=== PATIENT | male | born 1980 | race Caucasian/White ===

== ENCOUNTER 2019-09-30 07:54 | Emergency (ER) | payer SELFPAY ==
[2019-09-30] MEDS ORDERED: Ondansetron PF 4 MG/2 ML Vial ONE (08:20)
[2019-09-30] MEDS ORDERED: Ketorolac Tromethamine 30 MG/ML VIAL ONE (08:20)
[2019-09-30 08:39] LABS: #Basophils 0.1 thou/uL (0.0-0.2); #Eosinphils 0.2 thou/uL (0.0-0.7); #Lymphocytes 2.2 thou/uL (1.20-3.40); #Monocytes 0.5 thou/uL (0.11-0.59); #Neutrophils 7.1 thou/uL (1.40-6.50); %Basophils 0.8 % (0.0-1.0); %Eosinophils 1.8 % (0.0-10.0); %Lymphocytes 21.9 % (21.0-51.0); %Neutrophils 70.6 % (42.0-75.0); Hemoglobin 14.8 g/dL (14.0-18.0); Mean Corpuscular HGB CONC 33.2 g/dL (32.0-36.0); Mean Corpuscular Hemoglobin 31.3 pg (27.0-31.0); Mean Corpuscular Volume 94.2 fL (78.0-98.0); Mean Platelet Volume 7.2 fL (7.4-10.4); Platelet Count 294 thou/uL (130-400); RBC Distribution Width 11.6 % (11.5-14.5); Red Blood Cell (RBC) Count 4.74 mill/uL (4.70-6.10)
[2019-09-30 09:03] LABS: ALT (SGPT) 22 U/L (8-55); AST (SGOT) 16 U/L (5-34); Albumin 4.4 g/dL (3.5-5.0); Alkaline Phosphatase 66 U/L (40-110); Anion Gap 14 mmol/L (10-20); BUN (Urea Nitrogen) 16 mg/dL (8.9-20.6); Bilirubin, Total 0.6 mg/dL (0.2-1.2); Calc. Creatinine Clearance 0 mL/min (70-130); Calcium 9.4 mg/dL (7.8-10.44); Carbon Dioxide 22 mmol/L (22-29); Chloride 102 mmol/L (98-107); Estimated GFR-MDRD Greater than 90; Globulin 3.3 g/dL (2.4-3.5); Glucose 132 mg/dL (70-105); Protein, Total 7.7 g/dL (6.0-8.3); Sodium 134 mmol/L (136-145)
[2019-09-30 09:19] LABS: Bilirubin Negative (Negative); Clarity Extra Turbid (Clear); Glucose, Urine (Dipstick) Normal (Negative); Leukocyte Negative Leu/uL (Negative); Nitrite Negative (Negative); Protein, Urine (Dipstick) 10 mg/dL (Neg-Trace); Urobilinogen Normal mg/dL (Less than 2)
--- NOTE | 2019-09-30 09:26 | CT ---
CT ABDOMEN AND PELVIS WITH IV CONTRAST: HISTORY: Abdominal pain. FINDINGS: The lung bases are unremarkable. The patient is post cholecystectomy. The liver, spleen, pancreas, adrenal glands, and left kidney are normal. There is a 1 cm low-density lesion in the superior pole of the right kidney which does not meet all CT criteria for a simple cyst. No free air, free fluid, or lymphadenopathy is seen in the abdomen or pelvis. The small bowel loops are not abnormally dilated. A normal-appearing appendix is present. There is no evidence of aneurys mal dilatation of the abdominal aorta. No acute osseous abnormalities are seen. There are fat-conta ining bilateral inguinal hernias. IMPRESSION: 1. Indeterminate 1 cm right renal lesion. This should be evaluated with ultrasound on a nonemergent basis. 2. Fat-containing bilateral inguinal hernias. 3. No acute process. POS: [facility]
[2019-09-30 09:35] LABS: Bacteria/HPF Rare-Few HPF (None Seen); Blood, Urine Trace (Negative); RBC/HPF 0-3 HPF (0-3); Sperm/HPF Rare HPF (None Seen); WBC/HPF 0-3 HPF (0-3)
[2019-09-30] MEDS ORDERED: Iopamidol 370 76% 100 ML VIAL ONE (10:09)
--- NOTE | 2019-09-30 10:31 | ULT ---
Exam: Testicular ultrasound HISTORY: Testicular pain. History of hernia COMPARISON: None TECHNIQUE: Sagittal and transverse imaging of the left and right hemiscrotum are performed. Testicula r Doppler is performed with grayscale, color-flow, Doppler imaging and spectral waveform analysis. FINDINGS: Right hemiscrotum: Testicle: Homogeneous echotexture. No intratesticular masses. Right testicle measurements: 3.0 x 3.4 x 4.8 Right epididymis: Heterogeneous focus inferior to the testicle may represent the epididymal tail. Thi s heterogeneous focus measures 3.1 cm x 1.9 x 1.6 and has increased vascularity. Right epididymis head measurements: 1.0 x 1.0 x 1.0 cm Hydrocele: None Left hemiscrotum: Left testicle: Homogeneous echotexture. No intratesticular masses. Left testicle measurements: 2.5 x 3.3 x 4.8 cm Left epididymis: Normal echotexture. Left epididymis measurements:1.0 x 1.1 x 1.3 cm Hydrocele: None Bilateral inguinal regions: No sonographic evidence of inguinal hernia. Testicular Doppler: There is symmetric vascular flow to the left and right testicle. IMPRESSION: 1. No evidence of intratesticular mass. 2. Increased echogenicity inferior to the right testicle which may represent a hyperemic epididymal t ail. Correlate clinically for epididymitis. Consider urology consultation. 3. No obvious inguinal hernia.
[2019-09-30] MEDS ORDERED: Lidocaine 1% PF 5 ML VIAL ONE (10:47)
[2019-09-30] MEDS ORDERED: cefTRIAXone\\ROCEPHIN 250 MG VIAL ONE (10:47)
[2019-10-01 19:45] LABS: Chlam.trachomatis by PCR,Urine Not Detected (NotDetected)
== END 2019-09-30 11:12 | disposition home or self-care (01) ==
LOC: ERS 07:54
DX: N45.1 Epididymitis (principal); K40.20 Bilateral inguinal hernia, without obstruction or gangrene, not specified as recurrent; F17.210 Nicotine dependence, cigarettes, uncomplicated
CPT/HCPCS: 74177; 76870; 80053; 81003; 81015; 85025; 87491; 87591; 93976; 96361; 96372; 96374; 96375; J0696; J1885; J2001; J2405; Q9967

== ENCOUNTER 2019-11-18 08:08 | Outpatient (CLI) | payer BC, OTHER ==
[2019-11-18 20:18] LABS: SARS-CoV-2 MS2 Positive; SARS-CoV-2 N Gene Negative; SARS-CoV-2 S Gene Negative; SARS-CoV-2 orf1ab Negative
== END 2019-11-18 08:09 | disposition home or self-care (01) ==
LOC: LABBT 08:08
PROVIDERS: ATTEND Specialist
DX: Z01.812 Encounter for preprocedural laboratory examination (principal); Z11.59 Encounter for screening for other viral diseases; K40.90 Unilateral inguinal hernia, without obstruction or gangrene, not specified as recurrent; N45.1 Epididymitis
CPT/HCPCS: 87635; U0003

== ENCOUNTER 2019-11-20 06:09 | Day surgery (SDC) | payer BC ==
[2019-11-14 14:06] VITALS: BMI 32.3
[2019-11-20] MEDS ORDERED: Ketorolac Tromethamine 30 MG/ML VIAL ONE (06:21)
[2019-11-20] MEDS ORDERED: Acetaminophen 500 MG TAB ONE (06:21)
--- NOTE | 2019-11-20 06:35 | HP ---
HISTORY OF PRESENT ILLNESS: Albert Chairez, 39-year-old male, ex-, current arc and gas welder, [employer], has developed pain in his right testicle. He has had a thorough evaluation with Dr. Roberts, urologist, Yg. Ultrasound of the scrotum and CAT scan obtained. CAT scan reveals fat containing hernias. Patient denies no ascending masses in his groins. He, however, has a lot of pain in his right scrotum with certain movements and Valsalvas. Exam today revealed a left inguinal hernia on standing, exam on the right is difficult due to his epididymitis, but no hernia or mass was appreciated. I have talked to Dr. Roberts and plan is for laparoscopic mesh repair of bilateral inguinal hernias. If appropriate, he will need repair of his left inguinal hernia, evaluation of the right side and repair that side with mesh if appropriate under the same anesthetic with Dr. Roberts proceeding first. He can have these procedures done. Dr. Roberts is planning surgical procedure for his epididymitis which has been refractory to medical treatment. This is interfering with the patient's work and he wants something done. PAST SURGICAL HISTORY: Cholecystectomy, hernia repair of some sort 10 years ago. MEDICATIONS: None. ALLERGIES: NONE. SOCIAL HISTORY: Tobacco, one to three cigarettes a day. Alcohol, none. REVIEW OF SYSTEMS: Ten-point noncontributory. FAMILY HISTORY: Noncontributory. PHYSICAL EXAMINATION: VITAL SIGNS: 242 pounds, 6 feet tall, 138/89, 100, and 98.6 degrees. HEAD, EARS, EYES, NOSE, AND THROAT: Unremarkable. LUNGS: Clear to auscultation. CARDIAC: Regular rate and rhythm, without murmur or gallop. ABDOMEN: Soft, nontender. On standing, Valsalva, left inguinal hernia present. I cannot appreciate a right inguinal hernia, although exam is compromised due to pain from compression due to his epididymitis, nodules both testicles, apex. ASSESSMENT/PLAN: Left inguinal hernia on exam. Bilateral inguinal hernias fat containing on CAT scan. Patient has pain mostly from epididymitis. I have explained to the patient that most of his pain is from the epididymitis and the hernias are incidental findings. However, due to his young age, it is appropriate to repair these hernias. We will plan laparoscopic robotic repair of bilateral inguinal hernias with mesh. We will repair the left side, evaluate the right and repair it if necessary. Under the same anesthetic, Dr. Roberts will perform a right epididymis resection procedure for his epididymitis. Dr. Roberts will proceed first. Job ID: [id number]
[2019-11-20] MEDS ORDERED: Fentanyl 100 MCG/2 ML VIAL ONE ×2 (06:42→07:27)
[2019-11-20] MEDS ORDERED: SUGAMMADEX SODIUM 500 MG/5 ML VIAL ONE (06:43)
[2019-11-20] MEDS ORDERED: Lidocaine 1% w/Epinephrine 1:100K 20 ML VIAL ONE (06:55)
[2019-11-20] MEDS ORDERED: Bupivacaine PF 0.5% 30 ML VIAL ONE (06:55)
[2019-11-20] MEDS ORDERED: Midazolam HCl 2 mg/2 ml Vial ONE (07:27)
[2019-11-20] MEDS ORDERED: Bacitracin Zinc Ointment 30 gm TUBE ONE (08:53)
--- NOTE | 2019-11-20 09:45 | OP ---
DATE OF PROCEDURE: 11/20/2019 SLATE SPLITTER: None. PREPROCEDURE DIAGNOSES: 1. Chronic right epididymitis. 2. Right paratesticular mass. POSTPROCEDURE DIAGNOSIS: 1. Chronic right epididymitis. 2. Right paratesticular mass. PROCEDURES PERFORMED: 1. Excision of right paratesticular mass. 2. Partial right epididymectomy. ANESTHESIA: General endotracheal anesthesia. COMPLICATIONS: None. FLUIDS: See Anesthesia record. BLOOD LOSS: Less than 5 mL. SPECIMENS: Right scrotal mass. POSTPROCEDURE STATUS: Satisfactory. INDICATIONS FOR PROCEDURE: Mr. Chairez is a 39-year-old male with chronic right testicle pain. He has had multiple scrotal ultrasounds, demonstrating right epididymitis. The patient has an inflamed right paratesticular mass in the area of the right epididymis. The patient has been tried on multiple rounds of antibiotics, various NSAIDs, steroid dose pack. He is requiring narcotics for this pain. The patient also was diagnosed with possible bilateral inguinal hernias. He was evaluated by Dr. Donato Agustin who planned a bilateral robotic inguinal hernia repair. At the same time, the patient elected to proceed with right scrotal exploration, right epididymectomy, and all indicated procedures. DESCRIPTION OF PROCEDURE: The patient was taken to the operating room and placed in a supine position. After successful induction of general endotracheal anesthesia, his genitalia and lower abdomen were prepped and draped in usual sterile fashion. A time-out was performed, following which a median raphe incision was made with a 15 blade scalpel. We dissected down to layers of the dartos and tunica vaginalis, and the tunica was eventually opened using electrocautery. The testicle was delivered. We opened the tunica enough not to strangulate the cord when it was reflected. The testicle was inspected. The head of the epididymis was completely normal in appearance. Doppler was used to identify the testicular locations, testicular artery. Towards the lower pole of the testicle near the tail of the epididymis, there was an extremely firm, inflamed structure. We opened the tunica around the testicle and this mass off the testicle. We used the small LigaSure device to perform this dissection. We checked several times during the dissection to ensure that no damage to the arterial blood supply of the testicle. We dissected this off the testicle. The tissue was very inflamed and planes were challenging. However, eventually, we were able to dissect this down into his cord. We once again confirmed the location of the testicular artery, it was in the cord using Doppler. Some of the smaller veins were ligated using LigaSure device. This mass appeared to be contiguous with the vas deferens, which filled very firm, thickened, and cord-like all the way up to as far as could be felt proximally in his cord. There was no obvious component of inguinal hernia within the scrotum. We dissected this mass all the way down as proximal as possible. I clamped what was assumed to be the vas deferens with a hemostat and transected the mass with a #15 blade scalpel. The lumen of this cord-like structure did appear to be consistent with vas deferens, although it was very thick and approximately 10 times a diameter of a normal vas deferens. The end of this was cauterized, that was tied off with a 2-0 Vicryl tie. This was then released and retracted proximally into the inguinal canal. We then irrigated the area, confirmed hemostasis. We once again checked for arterial blood supply to the testicle with a Doppler, which was intact. The testicle was then placed back in the scrotum in the anatomical position. A significant amount of tunica was resected with this mass and there was none to reflect back around the spermatic cord to prevent recurrence of a hydrocele. We closed the dartos with a running 3-0 chromic and the skin with running 3-0 chromic. Antibiotic ointment was applied. Dr. Agustin then took over for his portion of the case. The patient tolerated the procedure well. PLAN: The patient will follow up with Urology in 2 to 4 weeks. Job ID: [id number]
[2019-11-20] MEDS ORDERED: Lidocaine 1% PF 5 ML VIAL ONE (11:20)
[2019-11-20] MEDS ORDERED: PROPOFOL 200 MG/20 ML VIAL ONE (11:20)
[2019-11-20] MEDS ORDERED: Succinylcholine Chloride 20 MG/ML 10 ml SYRINGE FS ONE (11:20)
[2019-11-20] MEDS ORDERED: Dexamethasone 20 MG/5 ML VIAL ONE (11:20)
[2019-11-20] MEDS ORDERED: Rocuronium Bromide 10 MG/ML (10ML VIAL) ONE (11:20)
[2019-11-20] MEDS ORDERED: Glycopyrrolate 0.2 MG/ML 5 ML SYRINGE ONE (11:20)
[2019-11-20] MEDS ORDERED: Ondansetron PF 4 MG/2 ML Vial ONE (11:20)
[2019-11-20] MEDS ORDERED: Promethazine HCl 25 MG/ML VIAL ONE (12:15)
[2019-11-20] MEDS ORDERED: HYDROcodone/Acetaminophen 5/325 mg Tablet ONE (14:13)
--- NOTE | 2019-11-20 16:44 | OP ---
DATE OF PROCEDURE: 11/20/2019 PREOPERATIVE DIAGNOSES: 1. Epididymitis, right per Dr. Roberts. 2. Bilateral inguinal hernias. POSTOPERATIVE DIAGNOSES: 1. Epididymitis, right per Dr. Roberts. 2. Bilateral inguinal hernias. PROCEDURE PERFORMED: Robot mesh repair for bilateral inguinal hernias (Dr. Roberts, Urology, first performed resection of right scrotal mass). ANESTHESIA: General, local with 0.5% Marcaine 30 mL, mixed with 1% Xylocaine 10 mL, total volume used. DESCRIPTION OF PROCEDURE: The patient was taken to the operating room where Dr. Roberts first performed resection of the patient's right marlon-epididymal mass. The abdomen had been clipped of hair, prepared with ChloraPrep, and draped in routine fashion. Local anesthetic was infiltrated in the skin and subcutaneous tissue about each port site. Supraumbilical paramedian incision was made and pneumoperitoneum to 15 mmHg was obtained with a Veress needle, replacing with an 11 balloon port. Bilateral mid lateral abdominal incision was made and an 8 mm port was placed. Robot was docked in position and laparoscopic evaluation of the pelvis performed, appreciated bilateral inguinal hernias. Bilaterally, from the anterior superior iliac spine on the right and left side, a peritoneal flap was dissected free towards the medial midline. This flap dissected free on both sides in the retroperitoneal space laterally, immediately identifying Valentin's ligament. Once Valentin's ligament was dissected free on both sides, the cord structures were dissected free. There was a smaller hernia sac and a large amount of fatty tissue dissected free from the cord structures on both sides. Good hemostasis was obtained. Mesh was then inserted along with sutures and a large right and left inguinal hernia repair undertaken by placing large mesh on the other side, properly positioned on both sides, securing the mesh medially to Valentin's ligament and just to the lateral aspect of the inferior epigastric vessels. The mesh was secured to the abdominal wall with 3-0 Vicryl suture. Once this was completed, the peritoneal flap was closed with continuous suture of #2-0 V-Loc. Good hernia repair was undertaken. Pneumoperitoneum was reduced. All instruments removed. All skin incisions were approximated with interrupted subdermal 4-0 Monocryl and Parmele glue applied. The patient tolerated the procedure well. Job ID: [id number]
== END 2019-11-20 14:00 | disposition home or self-care (01) ==
LOC: SDC 06:09
PROVIDERS: ATTEND Specialist
PROC: 0YUA4JZ Supplement Bilateral Inguinal Region with Synthetic Substitute, Percutaneous Endoscopic Approach (ICD-10-PCS; principal; 2019-11-20)
PROC: 0VTJ0ZZ Resection of Right Epididymis, Open Approach (ICD-10-PCS; principal; 2019-11-20)
DX: K40.20 Bilateral inguinal hernia, without obstruction or gangrene, not specified as recurrent (principal); N45.1 Epididymitis; F17.210 Nicotine dependence, cigarettes, uncomplicated
CPT/HCPCS: 88305; C1781; J0690; J1100; J1885; J2001; J2250; J2405; J2550; J2704; J3010; S0020